=== PATIENT | female | born 1945 | race Caucasian/White ===

== ENCOUNTER → 2020-11-27 09:36 | Outpatient (CLI) | payer MEDICARE, OTHER, SELFPAY ==
[2020-11-27 10:20] LABS: COVID19 -Nasal RAPID Negative (Negative)
== END ==
PROVIDERS: Referring Provider Surgery; Visit Provider Surgery
DX: C34.11 Malignant neoplasm of upper lobe, right bronchus or lung (principal)
CPT/HCPCS: 87635; C9803

== ENCOUNTER → 2020-11-27 09:40 | Outpatient (CLI) | payer MEDICARE, OTHER, SELFPAY ==
--- NOTE | 2020-11-30 08:13 | PM.PFT.1 ---
Pulmonary Function Test Referral & Results Date Patient Seen: 11/27/20 Requesting provider: Richelle Umaña Results: The spirometry demonstrates an FVC of 2.61 L which is 94% of predicted. The FEV1 was measured at 2.12 L which is 102% of predicted. The FEV1/FVC ratio was 81 which is 108% of predicted. Lung volumes show an SVC of 2.74 L which is 101% of predicted. The diffusing capacity was measured at 20.58 which is 89% of predicted. The maximum voluntary ventilation was normal Interpretation: This study demonstrates normal spirometry and probably normal diffusing capacity.
== END ==
PROVIDERS: Referring Provider Surgery; Visit Provider Surgery
DX: C34.11 Malignant neoplasm of upper lobe, right bronchus or lung (principal); Z87.891 Personal history of nicotine dependence; Z20.822 Contact with and (suspected) exposure to COVID-19
CPT/HCPCS: 87635; 94010; 94726; 94729; C9803

== ENCOUNTER → 2020-12-11 15:14 | Outpatient (CLI) | payer MEDICARE, OTHER, SELFPAY ==
--- NOTE | 2020-12-11 | DI.MRI.S_ITS ---
PROCEDURE: MR HEAD/BRAIN WO/W CON INDICATIONS: malignant neoplasm of right upper lobe TECHNIQUE: Noncontrast axial T1 spin echo, axial T2 fast spin echo, sagittal and axial FLAIR, coronal T2 fast spin echo, axial gradient echo, axial diffusion and ADC through the brain. After the administration of contrast, axial and coronal 3D VIBE or T1 spin echo with fat saturation through the brain. COMPARISON: None. FINDINGS: Image quality: Excellent. CSF Spaces: Basal cisterns are patent. No extra-axial fluid collections. Ventricles are normal in size and shape. Brain: No midline shift. No intracranial bleeds or masses. There is mild, diffuse cerebral volume loss. There are minimal periventricular and subcortical white matter chronic microvascular ischemic changes. No abnormal intracranial enhancement. The brainstem appears normal. Diffusion-weighted images demonstrate no acute ischemic insults. No chronic ischemic insults. Normal intravascular flow voids are present. Dural sinuses demonstrate normal postcontrast enhancement. Skull and face: Calvarial marrow is normal in signal. Orbits appear normal. Sinuses: Sinuses and mastoids appear clear. IMPRESSION: 1. No evidence of metastatic disease. 2. No acute intracranial disease process. 3. No abnormal intracranial mass or suspicious postcontrast enhancement. 4. Mild, diffuse cerebral volume loss. 5. Minimal periventricular and subcortical white matter chronic microvascular ischemic changes. Dictated by: Alicia Hatfield MD, PhD on 12/11/2020 at 17:12 Approved by: Alicia Hatfield MD, PhD on 12/11/2020 at 17:16
== END ==
PROVIDERS: PCP Internal Medicine; Referring Provider Surgery; Visit Provider Surgery
DX: C34.11 Malignant neoplasm of upper lobe, right bronchus or lung (principal)
CPT/HCPCS: 70553

== ENCOUNTER → 2023-11-06 10:54 | Outpatient (CLI) | payer MEDICARE, OTHER, SELFPAY ==
--- NOTE | 2023-11-06 10:57 | DI.MRI.S_ITS ---
PROCEDURE: MR LUMBAR SPINE WO CON INDICATIONS: Spinal stenosis, lumbar region TECHNIQUE: Noncontrast sagittal T1 spin echo and T2 fast echo, sagittal STIR, and T2 fast spin echo through the lumbar spine. In cases with scoliosis, additional coronal T2 fast spin echo may be performed. COMPARISON: [facility] [place], CR, XR LUMBAR SPINE 2 OR 3 VIEWS, 10/27/2023, 13:22. FINDINGS: Image quality: Excellent. Alignment and Curvature: Mild levocurvature centered at L4-L5. Trace anterolisthesis of L4 on L5. Bone Marrow: Marrow is of normal overall signal. No acute vertebral body compression fractures. Spinal Cord: Conus medullaris terminates at the L2-L3 level. Visualized cord demonstrates normal signal and size. Paraspinous Soft Tissues: No paravertebral masses. T12-L1: Normal appearance. L1-L2: Mild facet hypertrophy. No canal stenosis or foraminal stenosis. L2-L3: Mild chronic disc height loss. Disc bulge facet hypertrophy. Borderline canal stenosis. No significant foraminal stenosis. L3-L4: Moderate to severe chronic disc height loss. Disc bulge. Epidural lipomatosis. Facet hypertrophy and ligament hypertrophy. Moderate canal stenosis, in part secondary to epidural lipomatosis. Moderate to severe right foraminal narrowing with a mild degree of right foraminal L3 nerve root impingement. Mild to moderate left foraminal narrowing. L4-L5: Trace anterolisthesis. Disc height loss. Disc bulge. Prominent facet and ligament hypertrophy. Moderate canal stenosis. L5-S1: Chronic disc height loss. Disc bulge. Facet and ligament hypertrophy. No canal stenosis. Mild bilateral foraminal stenosis. IMPRESSION: 1. Multilevel underlying facet arthropathy. 2. Epidural lipomatosis contributes to canal stenosis at L3-L4. 3. Canal stenosis is moderate at L3-L4 and L4-L5. 4. At L3-L4, there is moderate to severe right foraminal narrowing with a degree of right foraminal L3 nerve root impingement Dictated by: Reese Basurto M.D. on 11/06/2023 at 12:16 Approved by: Reese Basurto M.D. on 11/06/2023 at 12:40
== END ==
LOC: MRI 10:56
PROVIDERS: PCP Nurse Practitioner Family; Referring Provider Orthopaedic Surgery Orthopaedic Surgery of the Spine; Visit Provider Orthopaedic Surgery Orthopaedic Surgery of the Spine
DX: M48.062 Spinal stenosis, lumbar region with neurogenic claudication (principal); M47.816 Spondylosis without myelopathy or radiculopathy, lumbar region; M47.817 Spondylosis without myelopathy or radiculopathy, lumbosacral region
CPT/HCPCS: 72148

== ENCOUNTER → 2023-11-12 12:42 | Outpatient (CLI) | payer MEDICARE, OTHER, SELFPAY ==
--- NOTE | 2023-11-12 12:46 | EKG_ITS ---
[address] [address] Test Date: 2023-11-12 Pat Name: Gunjan Rocha Department: [facility] Room: Gender: Female Laundry Tech: MANNY : 1945 Requested By: Order Number: [id number] Reading MD: Ming Dahl Measurements Intervals [place] Rate: 81 P: 70 CT: 166 QRS: 71 QRSD: 82 T: 52 QT: 386 QTc: 448 Interpretive Statements Normal sinus rhythm Electronically Signed On 11-12-2023 15:13:48 PDT by Ming Dahl
[2023-11-12 13:02] LABS: Add Manual Diff / Slide Review NO; Basophils Absolute Auto 100 /uL (0-100); Basophils Percent Auto 1.4 % (0-2); Eosinophils Absolute Auto 400 /uL (0-450); Eosinophils Percent Auto 4.9 % (2-4); Hematocrit 43.1 % (36-46); Hemoglobin 14.9 g/dL (12.0-16.0); Lymphocytes Absolute Auto 3400 /uL (1100-4500); Mean Corpuscular HGB Conc 34.6 % (30-36); Mean Corpuscular Hemoglobin 31.2 PG (26-34); Mean Corpuscular Volume 90.3 fL (80-100); Monocytes Absolute Auto 400 /uL (0-900); Monocytes Percent Auto 5.1 % (3-14); Neutrophils Absolute Auto 3400 /uL (1500-7000); Neutrophils Percent Auto 44.6 % (50-75); Platelet Count 274 X10^3/uL (150-400); Red Blood Cell Count 4.77 X10^6/uL (4.0-5.2); Red Cell Distribution Width 13.9 % (11.6-14.8); White Blood Cell Count 7.7 X10^3/uL (4.5-11.0)
[2023-11-12 13:15] LABS: Hemoglobin A1C% w Est Avg Glu 6.1 % (4.0-6.0)
[2023-11-12 13:23] LABS: Blood Urea Nitrogen 11 mg/dL (7-17); Calcium 9.5 mg/dL (8.4-10.2); Carbon Dioxide 24 mmol/L (22-32); Chloride 100 mmol/L (98-107); Estimated Glomerular Filt Rate > 60 mL/min (>60); Glucose 140 mg/dL (80-110); HEMOLYSIS < 15 (0-50); Potassium 4.2 mmol/L (3.4-5.1); Sodium 132 mmol/L (137-145)
== END ==
PROVIDERS: PCP Nurse Practitioner Family; Referring Provider Orthopaedic Surgery Orthopaedic Surgery of the Spine; Visit Provider Orthopaedic Surgery Orthopaedic Surgery of the Spine
DX: Z01.818 Encounter for other preprocedural examination (principal); R73.9 Hyperglycemia, unspecified; Z01.812 Encounter for preprocedural laboratory examination
CPT/HCPCS: 36415; 80048; 83036; 85025; 93005

== ENCOUNTER → 2023-11-27 11:38 | Outpatient (CLI) | payer MEDICARE, OTHER, SELFPAY ==
--- NOTE | 2023-11-27 | DI.CT.S_ITS ---
PROCEDURE: CT LUMBAR SPINE WO CON INDICATIONS: Spinal stenosis, lumbar region TECHNIQUE: Noncontrast 0.8 mm thick sections acquired from the T12 level to the sacrum. Sagittal and coronal reformats were constructed. For radiation dose reduction, the following was used: automated exposure control. COMPARISON: [facility], MR, MR LUMBAR SPINE WO CON, 11/06/2023, 11:31. [facility] [place], CR, XR LUMBAR SPINE 2 OR 3 VIEWS, 10/27/2023, 13:22. FINDINGS: Image quality: Excellent. Bones: No acute vertebral body compression fractures. No suspicious lytic or blastic bony lesions. S-shaped scoliotic curvature is seen. Minimal retrolisthesis can be seen at the L2-L3 level. Mild grade 1 anterolisthesis is seen at the L4-L5 level. No associated pars defects are seen. T12-L1: Normal. L1-L2: Normal. L2-L3: [id number] loss of disc height is seen. Moderate generalized disc bulge is seen. There is a superimposed central disc protrusion. Mild facet joint hypertrophy is seen. Mild bilateral neural foraminal narrowing is seen. No central canal narrowing is seen. L3-L4: Moderate loss of disc height is seen. Endplate irregularity and sclerosis can be seen. Vacuum disc phenomenon is seen at this level. Moderate generalized disc bulge is seen. There is at least moderate right-sided and moderate left-sided facet hypertrophy. There is at least moderate bilateral neural foraminal narrowing seen. Moderate central canal narrowing is seen. L4-L5: [id number]-icvgubor loss of disc height is seen. Moderate generalized disc bulge is seen. There is at least moderate facet hypertrophy seen, right worse than left. Moderate to severe bilateral neural foraminal narrowing can be seen. Moderate central canal narrowing is seen. L5-S1: At least moderate loss of disc height is seen. Vacuum disc phenomenon is seen at this level. Endplate irregularity and sclerosis can be seen. Mild generalized disc bulge is seen. Mild bilateral neural foraminal narrowing is seen. Mild central canal narrowing is seen. Soft tissues: No retroperitoneal masses or hematomas. Visualized aorta is normal in caliber. Atherosclerotic calcification is noted. IMPRESSION: Multiple levels of significant lower lumbar spine degenerative change can be seen. Dictated by: Manohar Hanley M.D. on 11/27/2023 at 14:51 Approved by: Manohar Hanley M.D. on 11/27/2023 at 14:56
== END ==
PROVIDERS: PCP Nurse Practitioner Family; Referring Provider Orthopaedic Surgery Orthopaedic Surgery of the Spine; Visit Provider Orthopaedic Surgery Orthopaedic Surgery of the Spine
DX: M47.816 Spondylosis without myelopathy or radiculopathy, lumbar region (principal); M48.061 Spinal stenosis, lumbar region without neurogenic claudication
CPT/HCPCS: 72131

== ENCOUNTER 2023-12-16 06:01 | Inpatient (IN) | payer MEDICARE, OTHER, SELFPAY ==
[2023-12-10 09:38] VITALS: BMI 28.8
[2023-12-16] VITALS (22 sets, daily range): BP systolic 129–176; BP diastolic 60–100; PULSE 80–114; RESP 8–20; TEMP 36.4–36.8; O2SAT 97–108; BMI 28.8; BMI 29.2
--- NOTE | 2023-12-16 | DI.RAD.S_ITS ---
PROCEDURE: XR LUMBAR SPINE 2-3V INDICATIONS: L4-5 L5-S1 TLIF TECHNIQUE: 3 intraoperative fluoroscopic views of the lumbar spine were acquired. COMPARISON: None. FINDINGS: Intraoperative fluoroscopic images shows posterior fusion of L4 through S1 vertebral bodies with intervertebral spacer and posterior surgical hardware placement. IMPRESSION: Fluoro guidance was provided intraoperatively for L4-5 and L5-S1 TLIF. Dictated by: Joey Rodriguez M.D. on 12/16/2023 at 15:45 Approved by: Joey Rodriguez M.D. on 12/16/2023 at 15:46
[2023-12-16] MEDS: ACETAMINOPHEN 325 MG TABLET 975 MG PO (07:03)
[2023-12-16] MEDS: LACTATED RINGERS 1,000 ML 42 ML IV ×2 (07:05→10:29)
--- NOTE | 2023-12-16 07:32 | PM.PREOP ---
Pre-operative Note Interval Note History & Physical reviewed/Exam performed by Physician: Yes Changes to H&P: No
[2023-12-16] MEDS: CEFAZOLIN 2 GM/100 ML PREMIX 100 ML IV ×2 (07:50→15:27)
--- NOTE | 2023-12-16 07:57 | SUR.OPER ---
Prone on spine table, head in foam head support, padded chest and pelvic supports, gel pad at knees, lower legs supported by pillows; nipples, genitalia and toes free of pressure, arms secured on foam padded arm boards at <90 degrees abduction. Tape over blanket at thigh secured to table.
[2023-12-16] MEDS: BUPIVACAINE 0.25% (PF) 60 ML, EPINEPHrine 0.15 MG INJ (08:10)
[2023-12-16] MEDS: BUPIVACAINE LIPOSOME 266 MG/20 ML VIAL INJ (11:16)
--- NOTE | 2023-12-16 11:20 | P.OP_ITS ---
Operative Date/Time/Diagnoses Date of procedure: 12/16/23 Time of procedure: 07:41 Pre-op diagnosis: 1. L4-5, L5-S1 spondylolisthesis 2. L4-5, L5-S1 foramen stenosis with radiculopathy Post-op diagnosis: same Procedure & Clinicians Procedure: 1. L4-5, L5-S1 Postero-lateral and posterior interbody fusion 2. L4-5, L5-S1 interbody cage placement. 3. L4-5, L5-S1 decompressive laminectomy with bilateral facetecomies 4. L4-5, L5-S1 Posterior segmental instrumentation 5. Franklin of bone marrow from iliac crest 6. Utilization of microsurgical technique and operating microscope 7. Utilization of robotic assisted navigation Same procedure as scheduled: Yes Indications: Patient has been having chronic back pain and worsening lumbar radiculopathy. Patient was found to have L4-5 L5-S1 spondylolisthesis with foraminal stenosis correlating with patient's symptoms. Patient failed multiple conservative management with worsening pain weakness and numbness in her lower extremity. Patient has been having difficulty performing activity of daily living. After discussing risks benefits of treatment options, patient elected proceed with surgery. Surgeon: Yared Agosto It Corporate Recruiter: Sherin Garza Click Yes if Unassisted: No Anesthesia Type: General Operative Notes Closure Type: primary Specimen(s): none sent Prosthetic devices, grafts, tissues, transplants, or devices: Globus CREO MIS screws, Rise cages Applied: catheter Estimated Blood Loss (mL): 100 Blood products transfused: none Procedure in detail: Patient was seen in the preoperative area. Risks and benefits of the surgery was discussed with the patient. Informed consent was obtained from the patient and placed in the chart. Surgical site was marked. Patient was taken to the operative room. General anesthesia was administered. Prophylactic antibiotic was given to the patient less than 30 min before the incision was made. Patient was placed into a prone position on the Pk table. Patient's back was then prepped and draped in the sterile fashion. Time-out was performed at this time. After patient was prepped and draped, patient's PSIS was palpated and marked bilaterally. Small 1 cm incision was made over the PSIS for placement of the reference probes. Two trocar was placed into the PSIS 1 on each side. The reference probe was attached to the trocar of the reference apparatus. At this time the C-arm imaging was used to confirm AP and lateral of L4-L5, L5- S1 vertebrae and merged the C-arm imaging using the SwipeClock robotic navigation system with the CT of the lumbar spine. When the lateral prone extra was taken at L4-5 L5-S1 level, there is increased spondylolisthesis at both L4-5 L5-S1 level indicating dynamic instability. After successful merging was completed and confirmed, skin marker was used to marylou out the skin incision using the SwipeClock robotic arm. Bilateral incision was made at this time. Pre templated trajectory was used and guided using the SwipeClock robotic navigation system for bilateral L4, L5, S1 pedicle screw placement. This was done by using the robotic arm to guide the high-speed bur to make a cortical entry point. Next a drill was placed also using the robotic arm and guided using the navigation system drilling partially through bilateral L4, L5 and S1 pedicles. Next L4, L5, S1 pedicle screws it was pre templated and measured was placed onto the power construction driver and inserted into the pedicles bilaterally. After all 6 screws were placed C-arm imaging was taken of both AP and lateral to confirm the placement. Excellent placement of the screws were confirmed and a matched precisely with the pre planned screw placement using the navigation system. MARs retractor was inserted using [employer] guidence. Globus MARS retractors was placed inside the incision and docked onto the L4 and L5 lamina. Using microsurgical technique and operating microscope, a L4, L5 laminectomy and L4-5, L5-S1 facetectomy was performed using a Kerrison rongeur. The laminectomy and facetectomy was performed in order to decompress patient's cauda equina as well as the nerve roots exiting at the L4-5, L5-S1 level. Patient was found have severe lateral recess and neural foramen stenosis which was fully decompressed after the laminectomy facetectomy. More than 75% of the facets were removed during the process of decompression rendering L4-5, L5-S1 level grossly unstable and required a fusion procedure at the same time. The disc space at L4-5, L5-S1 was identified, and a total diskectomy was performed at L4-5, L5-S1 level. The endplates were decorticated using a rasp and shaver. The total diskectomy and decortication was performed at L4-5, L5-S1 level in order to to accomplish a L4- 5, L5-S1 fusion. The local bone from the laminectomy and facetectomy was saved for local bone grafting. After the total diskectomy and decortication was completed, Viacel bone graft material was combined with local bone that was harvested earlier. At this time, a separate skin is incision was made over the iliac crest. A Jamshidi needle was inserted into the iliac crest through a separate skin incision. 5 cc of bone marrow aspiration was obtained through the separate skin incision using a Jamshidi needle from the iliac crest. The bone marrow aspiration was combined with local bone and the Viacel bone grafting material. The bone grafting material was placed into the L4-5, L5-S1 interbody space along with a expandable cage. The cage was expanded to its maximum height using the torque limiting screwdriver. The disc preparation as well as the cage insertion were also performed under navigation guidance. After the cage was placed, AP and lateral C-arm imaging was taken to confirm placement of the cage and excellent position was confirmed. Globus MARS retractor was inserted and docked onto the L4-5, L5-S1 posterolateral gutter on the right side. Using the power drill, posterior- lateral decortication was performed at L4-5, L5-S1 level until bleeding cortical bone was identified. The remaining bone grafting material was placed into the L4-5, L5-S1 posterior lateral gutter he order to accomplish posterolateral fusion at the L4-5, L5-S1 level. At this time the tulips were attached to the L4, L5, S1 pedicle screw shanks. After measuring the length of the rods, they were inserted into the tulips of the pedicle screws and locked in place using locking caps and torque limiting screwdriver bilaterally. Total 6 caps and 2 titanium rods was used in order to complete the posterior instrumentation construct. After all the hardware was placed, and confirmed with AP and lateral C-arm imaging, the wound was then irrigated with sterile normal saline and packed with Ray-Duke gauze for 3 min to accomplish hemostasis. After the gauze was removed the deep fascia was closed with #1 Vicryl suture. The subcutaneous layer was closed with 2-0 Vicryl. The skin was closed with skin margarita. Patient tolerated the procedure well. There were no complications. Neuro monitoring system was used to monitor patient's neurologic status throughout entire procedure. There was no disturbance of the neural monitoring signals throughout the case. The Operation could not have been safely performed without compromising the technical result or length of the procedure, without the assistance of a skilled surgical coordinator. The surgical coordinator was medically necessary for proper positioning, retraction and manipulation of instruments, proper exposure, surgical preparation, and manipulation of tissue.
[2023-12-16] MEDS: ONDANSETRON 4 MG/2 ML INJ IV (11:46)
[2023-12-16] MEDS: fentaNYL 100 MCG/2 ML INJ IV ×4 (11:46→12:13)
[2023-12-16] MEDS: HYDROMORPHONE 1 MG INJ IV ×4 (11:50→12:25)
[2023-12-16] MEDS: hydrOXYzine 50 MG/ML INJ 25 MG IM (11:52)
[2023-12-16] MEDS: OXYCODONE IR 5 MG TABLET PO (12:04)
[2023-12-16] MEDS: ACETAMINOPHEN 325 MG TABLET 650 MG PO (14:20)
[2023-12-16] MEDS: OXYCODONE IR 10 MG TABLET PO ×4 (14:20→23:11)
[2023-12-16] MEDS: HYDROMORPHONE 0.5 MG INJ IV (14:20)
[2023-12-16] MEDS: LACTATED RINGERS 1,000 ML 125 ML IV ×2 (14:21→23:05)
[2023-12-16] MEDS: LOSARTAN 50 MG TABLET PO (15:26)
--- NOTE | 2023-12-16 16:02 | PT-IP ANOTE ---
Pt requests to be seen tomorrow, she is not ready to get out of bed yet due to pain.
[2023-12-16] MEDS: allopurinoL 100 MG TABLET 200 MG PO (17:18)
--- NOTE | 2023-12-16 18:14 | PC.NURSE ---
Day shift: Notified JUAQUIN Martínez of patient's high BP, despite addressing pain with both IV and oral pain medications. Patient stated she can't remember if she took her BP medication yesterday. JUAQUIN Martínez ok'ed giving patient's losartan more than 1 hour early. Will continue to monitor.
[2023-12-16 20:05] LABS: Alanine Aminotransferase 67 IU/L (<35); Albumin 3.9 g/dL (3.5-5.0); Albumin Globulin Ratio 1.4 (1.0-2.8); Alkaline Phosphatase 100 U/L (38-126); Aspartate Aminotransferase 56 IU/L (14-36); Bilirubin Total 0.7 mg/dL (0.2-1.3); Bilirubin Unconjugated 0.2 mg/dL (0.0-1.1); Globulin 2.8 g/dL (1.7-4.1); HEMOLYSIS < 15 (0-50); Total Protein 6.7 g/dL (6.3-8.2)
[2023-12-16] MEDS: DOCUSATE 100 MG CAPSULE PO (20:28)
[2023-12-16] MEDS: SENNOSIDES 8.6 MG TABLET 17.2 MG PO (20:29)
[2023-12-17] VITALS: BP 128/56; PULSE 109; RESP 18; TEMP 36.6; O2SAT 95
[2023-12-17] MEDS: CEFAZOLIN 2 GM/100 ML PREMIX 100 ML IV (00:28)
[2023-12-17] MEDS: OXYCODONE IR 10 MG TABLET PO ×6 (02:14→20:57)
[2023-12-17 05:23] LABS: Hematocrit 37.5 % (36-46)
[2023-12-17] MEDS: PANTOPRAZOLE DR 20 MG TABLET PO (05:39)
--- NOTE | 2023-12-17 07:46 | P.PN_ITS ---
Subjective Subjective Interval history: Gunjan is a pleasant 78-year-old female who is POD#1 s/p L4-5, L5-S1 TLIF by Dr. Agosto. This morning she c/o poor pain control, had a very difficult time sleeping last night. Her pain has been controlled w/ 10mg Oxycodone Q4 and some IV Dilaudid yesterday. L>R low back pain, no shooting pain. Lives at home w/ who is willing and able to aid in her post-op care, has 2 steps at home. Has walker and cane at home for post-op use. Urinating well w/o issue, Plunkett has been removed. Has worked w/ PT and was able to walk w/ the assistance of the walker. Denies fever, chills, chest pain, SOB, nausea, vomiting. Exam Vital Signs (past 8 hours): - 12/17/23 00:00 Temperature 97.9 F Pulse Rate 109 H Respiratory Rate 18 Blood Pressure 128/56 L Pulse Oximetry 95 Oxygen Delivery Method Nasal Cannula Oxygen Flow Rate 0 Narrative Exam Narrative: Patient lying comfortably in bed during our interview today. No acute distress. AOx3. 5/5 strength with DF, PF, EHL right. 4/5 strength w/ DF, PF, on the left. 5/5 left EHL. Gross sensation intact throughout bilateral lower extremities. Calves soft and non-tender bilaterally. SCDs are on and functioning. Brisk capillary refill, pulses intact. Post-surgical dressing dressing clean, dry and intact over the lumbar spine. Objective Labs 12/17/23 04:37 Labs: Laboratory Results - last 24 hr 12/16/23 12/17/23 19:45 04:37 Hgb 13.0 Hct 37.5 Total Bilirubin 0.7 Conjugated Bilirubin 0.0 Unconjugated Bilirubin 0.2 AST 56 H ALT 67 H Alkaline Phosphatase 100 Total Protein 6.7 Albumin 3.9 Globulin 2.8 Albumin/Globulin Ratio 1.4 [facility] Medical History (Updated 12/10/23 @ 10:20 by Alison Grimm RN) History of COVID-19 (~11/2022) BCC (basal cell carcinoma) Cervical cancer Pre-diabetes Fatty liver HLD (hyperlipidemia) Lung cancer (2020) GERD (gastroesophageal reflux disease) Gout HTN (hypertension) Arthritis COPD (chronic obstructive pulmonary disease) Surgical History (Updated 12/10/23 @ 10:14 by Alison Grimm RN) History of bunionectomy of right great toe Hx of partial nephrectomy (~1969) History of lobectomy of lung (2020) History of hysterectomy Hx of appendectomy Hx of tonsillectomy Social History household members: spouse Smoking Status: Former smoker alcohol intake: current Assessment & Plan Post-op Postoperative Procedures: Procedures Operation Date: 12/16/23 07:45 Actual Procedure Side Surgeon p L4-5, L5-S1 TLIF with posterior instrumentation-Robot Yared Agosto MD Postoperative plan narrative: 1) Plan to discharge to home either today or tomorrow pending patients progress w/ PT and pain control. 2) Continue multimodal pain management. 3) Mechanical DVT prophylaxis. 4) Continue to work w/ PT here in the hospital to aid in patients mobilization. Maintain BLT restrictions. 5) Keep dressing intact, clean, dry until 2 week postop appointment. No soaking the incision site in pools or tubs. No topical ointments or creams to the incision site. 6) Follow up at [facility] in 2 weeks for a postop appointment, staple removal and wound check. All patient's questions were answered, she demonstrates understanding and is in agreement with the plan. Call our office if any questions or concerns arise. Quality VTE Deep Vein Thrombosis/Pulmonary Embolism Present on Admission: No
[2023-12-17 08:00] VITALS: BP 144/67; PULSE 88; RESP 16; TEMP 36.9; O2SAT 97
[2023-12-17] MEDS: DOCUSATE 100 MG CAPSULE PO ×2 (08:50→20:57)
[2023-12-17] MEDS: ACETAMINOPHEN 325 MG TABLET 650 MG PO ×2 (08:50→16:14)
[2023-12-17] MEDS: SODIUM CHLORIDE 0.9% FLUSH 10 ML IV ×2 (08:51→20:58)
--- NOTE | 2023-12-17 10:36 | OT.IP.EVAL ---
Current Diagnoses Spondylolisthesis, lumbar region (12/16/23) Spinal stenosis, lumbar region without neurogenic claudication (12/16/23) Surgery Performed Operation Date: 12/16/23 07:45 Actual Procedures p L4-5, L5-S1 TLIF with posterior instrumentation-Robot - Yared Agosto MD Past Medical History (Last Updated 12/10/23 @ 10:20 by Alison Grimm, RN) Arthritis BCC (basal cell carcinoma) Cervical cancer COPD (chronic obstructive pulmonary disease) Fatty liver GERD (gastroesophageal reflux disease) Gout History of COVID-19 (~11/2022) HLD (hyperlipidemia) HTN (hypertension) Lung cancer (2020) Pre-diabetes Surgical History (Last Updated 12/10/23 @ 10:14 by Alison Grimm, RN) History of bunionectomy of right great toe History of hysterectomy History of lobectomy of lung (2020) Hx of appendectomy Hx of partial nephrectomy (~1969) Hx of tonsillectomy Occupational Therapy Inpatient Evaluation/Re-Eval M1 PT/OT-IP Prior Functional Status Start: 12/17/23 07:50 Freq: NEEDED Status: Active Protocol: Document 12/17/23 10:00 MB (Rec: 12/17/23 10:49 MB [id number]) Medical Review Prior Functional Status Medical History Reviewed Yes Diet/Fluid Consistency Regular Communication WNLs Mobility and Gait I with cane Activities of Daily Living and IADL's Mod I with ADLs Social History Household Members spouse Living Arrangements House Number of Floors (Floors) One Floor Number of Stairs To Enter/Railing? Threshold to enter Home Environment High Toilet,Tub/Shower Home Equipment Front Wheel Walker,Straight Cane,Hand Held Shower,Grab Bars In Shower Employment Status Retired M1 PT/OT-IP Prior Functional Status Start: 12/17/23 10:34 Freq: NEEDED Status: Active Protocol: Document 12/17/23 10:35 [facility] (Rec: 12/17/23 10:54 [facility] [id number]) Medical Review Prior Functional Status Communication Independent Mobility and Gait Pt use of SPC outdoors and furniture cruises inside. Activities of Daily Living and IADL's Pt able to do ADL and IADL needs with increased time and pain. Social History Household Members spouse Living Arrangements House Home Environment Tub/Shower Home Equipment Front Wheel Walker,Straight Cane,Shower Seat without Backrest,Hand Held Shower, Export Documents Clerk,Sock Aid,Grab Bars In Shower M2 OT-IP Current Condition Start: 12/17/23 10:34 Freq: Status: Active Protocol: Document 12/17/23 10:35 [facility] (Rec: 12/17/23 10:54 [facility] [id number]) Occupational Therapy Current Condition Current Condition Evaluation Date 12/17/23 Treatment Diagnosis S/P L4-5, L5-S1 TLIF Diagnosis Onset Date 12/16/23 Post Operative Precautions Lumbar Precautions Log Roll,No Twisting,Limit Bending,Lifting Restriction of 10 lbs,Gait Belt above Incisional Area M3 OT- IP Subjective and Pain Start: 12/17/23 10:34 Freq: Status: Active Protocol: Document 12/17/23 10:35 [facility] (Rec: 12/17/23 10:54 [facility] [id number]) OT- Subjective Occupational Therapy Visit Type Type Initial Evaluation Visit Start Time 09:40 Visit Stop Time 10:36 Occupational Therapy Visit Comments Patient Comments Pt agreed to get up and her in the room. Patient/Caregiver Goals To go home. OT Pain Assessment Pain When Pain Assessed At Rest Pain Present Pain Present Pain Reported Location Lower Back Intensity 7 Scale Used Numeric (0 - 10) M4 OT- IP ADL's Start: 12/17/23 10:34 Freq: Status: Active Protocol: Document 12/17/23 10:35 [facility] (Rec: 12/17/23 10:54 [facility] [id number]) OT [id number] General Evaluation Self-Feeding Ability Independent OT ADL-Grooming General Evaluation Grooming Ability Standby Assistance Areas Needing Assistance Retrieving/Set-up of Grooming Items Comments OT Grooming Comments Set-up assist and able to do while the FWW in front of her. OT ADL-Oral Care General Eval Oral Care Ability Independent Comments Oral Care Comments Able to do while standing with FWW. OT ADL-Dressing General Eval Lower Body Dressing Ability Maximum Assistance Areas Needing Assistance Socks Comments OT Dressing Comments Pt uses slip on shoes at home, assisted pt with her socks. OT ADL-Toileting General Evaluation Toileting Ability Total Assistance Areas Needing Assistance Empty Catheter or Colostomy Comments OT Toileting Comments Plunkett in place. Able to practice if pt able to reach back appropriately to be able to wipe and best to have assist or get a toilet paper aid or bidet. Pt agreed to get pads/pull ups so not having to hurry to the bathroom at night. BSC also maybe beneficial for pt to have. OT ADL-Bathing Comments OT Bathing Comments Spoke of dressing care while showering. M5 OT- IP IADL's Start: 12/17/23 10:34 Freq: Status: Active Protocol: Document 12/17/23 10:35 [facility] (Rec: 12/17/23 10:54 [facility] [id number]) OT-Instrumental Activities of Daily Living Deficits IADL Deficits Identified Deficits Home Safety Awareness Awareness of Need for Assistance at Home Good Awareness Ability to Problem Solve Emergency Able to Problem Solve Situations Home Safety Comments Pt's able to assist pt at home. Medication Management Medication Management No Deficits Identified Money Management Money Management Caregiver Provides Assistance Meal Preparation Meal Preparation Caregiver Provides Assist Software Quality Assurance Specialist Software Quality Assurance Specialist Caregiver Provides Assist M6 OT- IP Functional Cognition Start: 12/17/23 10:34 Freq: Status: Active Protocol: Document 12/17/23 10:35 [facility] (Rec: 12/17/23 10:54 [facility] [id number]) Cognitive Factors Limiting Selfcare Function Cognitive Ability Level of Alertness Alert Patient Orientation Name,Age,Birthday,Month,Date, Year,Day of Week,Place, Situation Attention Span Ability Capable of Focused Attention, Capable of Sustained Attention Ability to Follow Commands Able to Follow One Step Commands Cognitive Comments Cognitive Assessment Comments Pt able to follow her precautions for ADL and mobility needs and mainly just needing cues to push up from the bed prior to standing to the FWW versus push up on the FWW. OT- Vision and Hearing OT- Hearing Assessment OT- Hearing Assessment WFL OT- Vision Assessment Visual Acuity Glasses All The Time Visual Attentiveness WFL Occular Pursuits WFL M7 OT- IP Mobility and Balance Start: 12/17/23 10:34 Freq: Status: Active Protocol: Document 12/17/23 10:35 [facility] (Rec: 12/17/23 10:54 [facility] [id number]) OT- Bed Mobility Assessment Supine to Sit Supine to Sit Assist Contact Guard Assistance OT-Transfer Assessment Sit to and From Stand Sit to and from Stand Contact Guard Assistance Transfers Transfer Ability Contact Guard Assistance Technique Transfer Destination Bed,Chair Transfer Technique Stand Step Pivot Devices Transfer Assistive Devices Gait Belt,Front Wheeled Walker Comments Mobility Comments CGA for bed mobility and to come to stand and with the FWW in the room. Pt's able to assist pt with the FWW safely. OT- Balance Assessment Sitting Balance and Reactions Static Sitting Balance Ability Normal Dynamic Sitting Balance Ability Good Standing Balance and Reactions Static Standing Balance Ability Good Dynamic Standing Balance Ability Fair M9 OT- IP Assessment and Plan Start: 12/17/23 10:34 Freq: Status: Active Protocol: Document 12/17/23 10:35 [facility] (Rec: 12/17/23 10:54 [facility] [id number]) OT Summary Assessment and Plan Potential Rehabilitation Potential Good Analytic Complexity at Evaluation Moderate Summary OT Impairments Pain,Balance,Functional Mobility,Dressing,Toileting, Bathing,Toilet Transfers, Shower Transfers Progress Towards Goals Progressing Toward Goals Assessment Summary Pt low complexity and main barriers are pain, just needing minimal assist for mobility needs at this time and pt's able to demonstrate good safety. Pt will benefit from getting a toilet paper aid and possibly a BSC. Pt to go home with 24/ assist and benefit from outpt PT when cleared by surgeon. Goals Dressing Goal Independent,Export Documents Clerk,Sock Aid Toileting Goal Independent,Toilet Paper Aid Bathing Goal Minimal Assistance Toilet Transfer Goal Independent Shower Transfer Goal Standby Assistance Days to Meet Goals 2 Frequency of Treatment Other frequency 5x/week Treatment Plan OT Treatment Plan ADL Training,Functional Mobility,Patient/Family Education,Discharge Planning Discharge Recommendations OT Discharge Recommendations Home with Assistance Home Equipment Needs Toilet Paper aid Transportation Needs at Discharge Private Vehicle
--- NOTE | 2023-12-17 10:50 | PT.IIE ---
Current Diagnoses Spondylolisthesis, lumbar region (12/16/23) Spinal stenosis, lumbar region without neurogenic claudication (12/16/23) Surgery Performed Operation Date: 12/16/23 07:45 Actual Procedures p L4-5, L5-S1 TLIF with posterior instrumentation-Robot - Yared Agosto MD Surgical History (Last Updated 12/10/23 @ 10:14 by Alison Grimm, RN) History of bunionectomy of right great toe History of hysterectomy History of lobectomy of lung (2020) Hx of appendectomy Hx of partial nephrectomy (~1969) Hx of tonsillectomy Medical History (Last Updated 12/10/23 @ 10:20 by Alison Grimm, RN) Arthritis BCC (basal cell carcinoma) Cervical cancer COPD (chronic obstructive pulmonary disease) Fatty liver GERD (gastroesophageal reflux disease) Gout History of COVID-19 (~11/2022) HLD (hyperlipidemia) HTN (hypertension) Lung cancer (2020) Pre-diabetes Physical Therapy Inpatient Evaluation/Re-Eval M1 PT/OT-IP Prior Functional Status Start: 12/17/23 07:50 Freq: NEEDED Status: Active Protocol: Document 12/17/23 10:00 MB (Rec: 12/17/23 10:49 MB [id number]) Medical Review Prior Functional Status Medical History Reviewed Yes Diet/Fluid Consistency Regular Communication WNLs Mobility and Gait I with cane Activities of Daily Living and IADL's Mod I with ADLs Social History Household Members spouse Living Arrangements House Number of Floors (Floors) One Floor Number of Stairs To Enter/Railing? Threshold to enter Home Environment High Toilet,Tub/Shower Home Equipment Front Wheel Walker,Straight Cane,Hand Held Shower,Grab Bars In Shower Employment Status Retired M2 PT-IP Current Condition Start: 12/17/23 07:50 Freq: NEEDED Status: Active Protocol: Document 12/17/23 10:00 MB (Rec: 12/17/23 10:49 MB [id number]) Physical Therapy Current Condition Current Condition Evaluation Date 12/17/23 Treatment Diagnosis Lumbar fusion M3 PT-IP Subjective Start: 12/17/23 07:50 Freq: NEEDED Status: Active Protocol: Document 12/17/23 10:00 MB (Rec: 12/17/23 10:49 MB [id number]) Subjective Physical Therapy Visit Type Type Initial Evaluation Visit Start Time 10:00 Visit Stop Time 10:20 Number of CERTIFIED NOVELL ADMINISTRATOR Visits 0 Physical Therapy Visit Comments Patient Comments Pt reports pain with mobility. Therapy Pain Assessment Pain When Pain Assessed During Mobility Pain Present Pain Present Pain Reported Location Lower Back Intensity 7 Scale Used Numeric (0 - 10) M4 PT-IP Mobility and Gait Start: 12/17/23 07:50 Freq: NEEDED Status: Active Protocol: Document 12/17/23 10:00 MB (Rec: 12/17/23 10:49 MB [id number]) PT-Bed Mobility Assessment Rolling Type of Rolling Log Rolling,Roll to Right Level of Assist Standby Assistance,1 Person Assistance Supine to Sit Supine to Sit Standby Assistance,1 Person Assistance,Bedrails Scooting Scooting to Edge of Bed Standby Assistance PT-Transfer Assessment Sit to and From Stand Sit to and from Stand Contact Guard Assistance,1 Person Assistance,Use of Upper Extremities Equipment Transfer Assistive Device Gait Belt,Front Wheeled Walker Orthotic/Prosthetic Devices or Brace: No Transfers Transfer Destination Chair Transfer Technique Ambulation Transfer Ability Level of Assist Contact Guard Assistance Comments Mobility Comments Pt uses bed rail to her right briefly for bed mobility. Increased time and effort for bed mobility, pain, but moves well. BP does not drop with mobility. Gait Assessment Gait Gait Assistance Required: Contact Guard Assist Distance (Feet) 30 Able to Maintain Weight Bearing Status Yes During Gait Assistive Devices Assistive Device Gait Belt,Front Wheeled Walker Orthotic/Prosthetic Devices or Brace: No Gait Deviations General Gait Pattern Antalgic,Decreased Stride Length,Decreased Feet Clearance,Wide Based Gait Factors Limiting Gait Function Factors Limiting Gait Function Decreased Activity Tolerance, Pain,Poor Balance,Poor Safety Awareness Comments Gait Comments Slow gait, stops at doorway and therapists adjust her RW, pt reports light-headedness and BP does not drop PT-Balance Assessment Sitting Balance and Reactions Static Sitting Balance Ability Good Dynamic Sitting Balance Ability Good Standing Balance and Reactions Static Standing Balance Ability Good Dynamic Standing Balance Ability Good Device Used RW M5 PT-IP Objective Assessments Start: 12/17/23 07:50 Freq: NEEDED Status: Active Protocol: Document 12/17/23 10:00 MB (Rec: 12/17/23 10:49 MB [id number]) Orientation Orientation/Cognition Level of Alertness Alert Orientation Name,Age,Birthday,Month,Date, Year,Day of Week,Place, Situation Language Function Ability No Deficits Noted Safety Awareness Decreased Safety Awareness Memory Description No Deficits Noted Gross Range of Motion Upper Extremity ROM Impairments Defer to OT Lower Extremity ROM Assessment Within Functional Limits Strength Lower Extremity Strength Assessment Within Functional Limits Muscle Tone Muscle Tone WNL Yes M6 PT-IP Treatment Start: 12/17/23 07:50 Freq: NEEDED Status: Active Protocol: Document 12/17/23 10:00 MB (Rec: 12/17/23 10:49 MB [id number]) Physical Therapy Treatment Exercises Exercises Ankle Pumps Education Education Provided Precautions,Post-Op Packet, Safety M7 PT-IP Assessment and Plan Start: 12/17/23 07:50 Freq: NEEDED Status: Active Protocol: Document 12/17/23 10:00 MB (Rec: 12/17/23 10:49 MB [id number]) PT Summary Assessment and Plan Potential Rehabilitation Potential Good Status of Condition at Evaluation Evolving Summary Impairments Pain,Balance,Bed Mobility, Transfers,Gait,Activity Tolerance Progress Towards Goals Progressing Toward Goals Assessment Summary Pt is s/p lumbar fusion and her BP is stable with mobility today. She moves slowly and has increased back pain with mobility. She requires SBA for bed mobility and CGA for gait with RW. She is light-headed with gait and reminders to slow breathing and breathe through nose. Recommend up with nsg. Pt has no steps to enter home and will have to assist with mobility at d/c. Goals Bed Mobility Goal Independent Transfer Goal Independent,Front Wheeled Walker Gait Goal Independent,Front Wheel Walker Gait Distance 100 Days to Meet Goals 3 Frequency of Treatment Frequency Of Treatment Twice a Day Treatment Plan Physical Therapy Treatment Plan Bed Mobility Training,Transfer Training,Gait Training, Therapeutic Exercise,Balance Retraining,Post Op Education, Discharge Planning,Hot or Cold Pack,Neuromuscular Re-ed, Coordination Retraining,Manual Therapy Precautions Lumbar Precautions Log Roll,No Twisting,Limit Bending,Lifting Restriction of 10 lbs,Gait Belt above Incisional Area Weight Bearing Status Weight Bearing Status Weight Bear as Tolerated Recommendations To Nursing Amount of Assist Needed 1 Person Assist Discharge Recommendations PT Discharge Recommendations Home with Assistance, Outpatient PT Transportation Needs at Discharge Private Vehicle
--- NOTE | 2023-12-17 13:35 | CM.DANOTE ---
Initial DCP Assessment Note Pt is a 78 yo female, resident of [place], now POD#1 from TLIF PCP: Millicent Stafford Payer: [facility] [employer] [employer] [facility] [employer] [facility] Reviewed chart, pt discussed in multidisciplinary rounds this morning. Met w/patient and her spouse as OT was finishing her eval. Therapies recommending home w/family to assist and patient has planned for this. Patient struggling with pain management and would like to stay this evening to get on a manageable pain scale before return home. No barriers identified at this time to patient's safe discharge home w/family to assist; close outpatient f/u recommended. CM team will plan to follow clinical course closely in case any DC needs or concerns arise. VIOLET Hogan Discharge Planning/Care Management CM Discharge Assessment Start: 12/17/23 13:33 Freq: Status: Active Protocol: Document 12/17/23 13:33 ASHLEE (Rec: 12/17/23 13:34 ASH[facility]E [id number]) Discharge Planning Assessment Assigned Bias Machine Operator Helper VIOLET Weiss DPOA/Assigned Designee Name Aravind Rocha, spouse Contact Information [phone] Advance Directives? No History Provided By Patient,Significant Other, Medical Record Prior Living Arrangements House Household Members spouse Type of transporation used prior to Drives own vehicle admit Independent with ADL's Yes Is patient alert and oriented? Yes Barriers to Discharge No Discharge Plan Home Transportation Arrangement Family Referrals Initiated None needed
--- NOTE | 2023-12-17 15:22 | PT.IPTN ---
Current Diagnoses Spondylolisthesis, lumbar region (12/16/23) Spinal stenosis, lumbar region without neurogenic claudication (12/16/23) Surgery Performed Operation Date: 12/16/23 07:45 Actual Procedures p L4-5, L5-S1 TLIF with posterior instrumentation-Robot - Yared Agosto MD Physical Therapy Treatment Note M2 PT-IP Current Condition Start: 12/17/23 07:50 Freq: NEEDED Status: Active Protocol: Document 12/17/23 10:00 MB (Rec: 12/17/23 10:49 MB [id number]) Physical Therapy Current Condition Current Condition Evaluation Date 12/17/23 Treatment Diagnosis Lumbar fusion M3 PT-IP Subjective Start: 12/17/23 07:50 Freq: NEEDED Status: Active Protocol: Document 12/17/23 15:43 TS (Rec: 12/17/23 15:52 TS [id number]) Subjective Physical Therapy Visit Type Type Treatment Note Visit Start Time 15:22 Visit Stop Time 15:41 Number of COMPOSITE SCIENCE TEACHER Visits 1 Physical Therapy Visit Comments Patient Comments Pt found resting in bed, is agreeable to PT. Therapy Pain Assessment Pain When Pain Assessed At Rest Pain Present Pain Present Pain Reported Location Lower Back Intensity 5 Scale Used Numeric (0 - 10) Description Acute M4 PT-IP Mobility and Gait Start: 12/17/23 07:50 Freq: NEEDED Status: Active Protocol: Document 12/17/23 15:43 TS (Rec: 12/17/23 15:52 TS [id number]) PT-Bed Mobility Assessment Rolling Type of Rolling Log Rolling,Roll to Right Level of Assist Standby Assistance,1 Person Assistance Supine to Sit Supine to Sit Standby Assistance,1 Person Assistance,Bedrails Scooting Scooting to Edge of Bed Standby Assistance PT-Transfer Assessment Sit to and From Stand Sit to and from Stand Standby Assistance Equipment Transfer Assistive Device Gait Belt,Front Wheeled Walker Orthotic/Prosthetic Devices or Brace: No Comments Mobility Comments She recalled 2/3 spinal precautions(no lifting). Logroll to L side SBA with handrails. Supine to sit SBA with BUE support pushing from bed, pt demonstrates good carryover. STS from bed SBA with FWW. She rushed to restroom due to needing to void quickly, therapist cued pt for safety. She ambulated ~ 100'SBA with FWW. She performed steps x3 with B handrails and SBA/CGA. Pt ambulated back to room. Sit to supine SBA. Pt was left in bed, all needs met. Gait Assessment Gait Gait Assistance Required: Standby Assistance Distance (Feet) 100 Able to Maintain Weight Bearing Status Yes During Gait Assistive Devices Assistive Device Gait Belt,Front Wheeled Walker Orthotic/Prosthetic Devices or Brace: No Gait Deviations General Gait Pattern Antalgic,Decreased Stride Length,Decreased Feet Clearance,Wide Based Gait Factors Limiting Gait Function Factors Limiting Gait Function Decreased Activity Tolerance, Pain,Poor Balance,Poor Safety Awareness Comments Gait Comments See mobility comments Stair Climbing Assessment Evaluation Level of Assist On Stairs Standby Assistance,Contact Guard Assistance,1 Person Assistance Devices Stair Climbing Assistive Devices Left Railing,Right Railing Technique/Endurance Stair Climbing Direction Ascend and Descend Stair Climbing Technique Step to Step Number of Steps Climbed 3 Comments Stair Climbing Comments See mobility comments PT-Balance Assessment Sitting Balance and Reactions Static Sitting Balance Ability Normal Dynamic Sitting Balance Ability Good Standing Balance and Reactions Static Standing Balance Ability Good Dynamic Standing Balance Ability Fair Device Used FWW M5 PT-IP Objective Assessments Start: 12/17/23 07:50 Freq: NEEDED Status: Active Protocol: Document 12/17/23 10:00 MB (Rec: 12/17/23 10:49 MB [id number]) Orientation Orientation/Cognition Level of Alertness Alert Orientation Name,Age,Birthday,Month,Date, Year,Day of Week,Place, Situation Language Function Ability No Deficits Noted Safety Awareness Decreased Safety Awareness Memory Description No Deficits Noted Gross Range of Motion Upper Extremity ROM Impairments Defer to OT Lower Extremity ROM Assessment Within Functional Limits Strength Lower Extremity Strength Assessment Within Functional Limits Muscle Tone Muscle Tone WNL Yes M6 PT-IP Treatment Start: 12/17/23 07:50 Freq: NEEDED Status: Active Protocol: Document 12/17/23 15:43 TS (Rec: 12/17/23 15:52 TS [id number]) Physical Therapy Treatment Education Education Provided Precautions,Post-Op Packet, Safety M7 PT-IP Assessment and Plan Start: 12/17/23 07:50 Freq: NEEDED Status: Active Protocol: Document 12/17/23 15:43 TS (Rec: 12/17/23 15:52 TS [id number]) PT Summary Assessment and Plan Potential Rehabilitation Potential Good Summary Impairments Pain,Balance,Bed Mobility, Transfers,Gait,Activity Tolerance Progress Towards Goals Progressing Toward Goals Assessment Summary Gunjan is making good progress with her mobility. She is SBA for all bed mobility and demonstrates good carryover of sequencing. She progressed her gait to ~100'SBA with FWW. She performed stairs SBA/CGA x3 with B handrails. She rushed to the restroom due to needning to void, pt was cued for safety with her mobility. She recalled 2/3 spinal precautions(no lifting). PT is recommending home with assist . Goals Bed Mobility Goal Independent Transfer Goal Independent,Front Wheeled Walker Gait Goal Independent,Front Wheel Walker Gait Distance 100 Days to Meet Goals 3 Frequency of Treatment Frequency Of Treatment Twice a Day Treatment Plan Physical Therapy Treatment Plan Bed Mobility Training,Transfer Training,Gait Training, Therapeutic Exercise,Balance Retraining,Post Op Education, Discharge Planning,Hot or Cold Pack,Neuromuscular Re-ed, Coordination Retraining,Manual Therapy Precautions Lumbar Precautions Log Roll,No Twisting,Limit Bending,Lifting Restriction of 10 lbs,Gait Belt above Incisional Area Weight Bearing Status Weight Bearing Status Weight Bear as Tolerated Recommendations To Nursing Amount of Assist Needed Standby Assistance Discharge Recommendations PT Discharge Recommendations Home with Assistance, Outpatient PT Transportation Needs at Discharge Private Vehicle
[2023-12-17] MEDS: allopurinoL 100 MG TABLET 200 MG PO (16:14)
[2023-12-17 16:20] VITALS: BP 173/72; PULSE 91
[2023-12-17] MEDS: LOSARTAN 50 MG TABLET PO (16:20)
[2023-12-17 19:37] VITALS: BP 113/54; PULSE 87; RESP 18; TEMP 36.9; O2SAT 97
[2023-12-17] MEDS: SENNOSIDES 8.6 MG TABLET 17.2 MG PO (20:57)
[2023-12-18] MEDS: OXYCODONE IR 10 MG TABLET PO ×3 (00:07→09:02)
[2023-12-18] MEDS: ACETAMINOPHEN 325 MG TABLET 650 MG PO ×2 (00:07→05:05)
[2023-12-18] MEDS: PANTOPRAZOLE DR 20 MG TABLET PO (06:00)
--- NOTE | 2023-12-18 07:24 | PM.DS.1 ---
History of Present Illness History of Present Illness Date Patient Seen: 12/18/23 Time Patient Seen: 07:25 Chief complaint: INPT Narrative: Operative Date/Time/Diagnoses Date of procedure: 12/16/23 Time of procedure: 07:41 Pre-op diagnosis: 1. L4-5, L5-S1 spondylolisthesis 2. L4-5, L5-S1 foramen stenosis with radiculopathy Post-op diagnosis: same Procedure & Clinicians Procedure: 1. L4-5, L5-S1 Postero-lateral and posterior interbody fusion 2. L4-5, L5-S1 interbody cage placement. 3. L4-5, L5-S1 decompressive laminectomy with bilateral facetecomies 4. L4-5, L5-S1 Posterior segmental instrumentation 5. [place] of bone marrow from iliac crest 6. Utilization of microsurgical technique and operating microscope 7. Utilization of robotic assisted navigation Same procedure as scheduled: Yes Indications: Patient has been having chronic back pain and worsening lumbar radiculopathy. Patient was found to have L4-5 L5-S1 spondylolisthesis with foraminal stenosis correlating with patient's symptoms. Patient failed multiple conservative management with worsening pain weakness and numbness in her lower extremity. Patient has been having difficulty performing activity of daily living. After discussing risks benefits of treatment options, patient elected proceed with surgery. Surgeon: Yared Agosto Appraisal Manager: Sherin Garza Click Yes if Unassisted: No Anesthesia Type: General Operative Notes Closure Type: primary Specimen(s): none sent Prosthetic devices, grafts, tissues, transplants, or devices: Globus CREO MIS screws, Rise cages Applied: catheter Estimated Blood Loss (mL): 100 Blood products transfused: none Discharge Providers Provider Date of admission: 12/16/23 06:01 Discharge Date: 12/18/23 Primary care physician: STEPHY Joseph Consults: 12/16/23 12:44 Consult to Occupational Therapy Evaluate & Treat Comment: Physician Instructions: Evaluate and treat Consult to Physical Therapy Evaluate & Treat Comment: Physician Instructions: Evaluate and Treat Discharge provider: Claudia Solitario PA-C Summary Hospital Course Discharge Diagnosis: L4-5, L5-S1 spondylolisthesis, L4-5, L5-S1 foramen stenosis with radiculopathy; s/p L4-5, L5-S1 lumbar fusion Hospital Course: Ms Roel Rocha's hospital course was unremarkable. On the morning of POD# 2, she was feeling well and wanted to go home. She was eating and voiding without difficulty and her pain was well-controlled with oral medication. Her LFTs were checked on morning of surgery, AST and ALT were mildly elevated. She can safely take APAP 325mg q 4-6hrs for the next 2-3 weeks. She was evaluated by PT throughout her stay and they felt she was appropriate for d/c home with family. Exam Vital Signs (past 8 hours): Oxygen Delivery Method Room Air Oxygen Flow Rate 0 Narrative Exam Narrative: 5/5 strength in hip flexors, quadriceps, hamstrings, DF, PF, EHL bilaterally. Sensation to light touch intact throughout BLE, calves soft and compressible. Dressing placed intraoperatively was CDI. Objective Labs 12/17/23 04:37 [facility]LY [facility], [facility] Medical History (Updated 12/10/23 @ 10:20 by Alison Grimm RN) History of COVID-19 (~11/2022) BCC (basal cell carcinoma) Cervical cancer Pre-diabetes Fatty liver HLD (hyperlipidemia) Lung cancer (2020) GERD (gastroesophageal reflux disease) Gout HTN (hypertension) Arthritis COPD (chronic obstructive pulmonary disease) Surgical History (Updated 12/18/23 @ 07:27 by Claudia Solitario PA-C) History of bunionectomy of right great toe Hx of partial nephrectomy (~1969) History of lobectomy of lung (2020) History of hysterectomy Hx of appendectomy Hx of tonsillectomy Social History household members: spouse Smoking Status: Former smoker alcohol intake: current Discharge Assessment & Plan Assessment and Plan Assessment: L4-5, L5-S1 spondylolisthesis, L4-5, L5-S1 foramen stenosis with radiculopathy; s/p L4-5, L5-S1 lumbar fusion Plan of Treatment: D/c home, multimodal pain control, f/u in office in 2 weeks as scheduled. Discharge Plan Discharge Plan Patient Disposition: Home Discharge orders & Medications Prescriptions: New polyethylene glycol 3350 17 gram Powder In Packet 17 g PO DAILY PRN (Reason: Constipation) Qty: 100 1RF oxycodone 5 mg Tablet 5 mg PO Q4-6H PRN (Reason: Pain, Moderate (4-6)) Qty: 40 0RF ondansetron 4 mg Tablet,Disintegrating 4 mg sublingual Q6HR Qty: 30 0RF Continued allopurinol 100 MG tablet 200 mg PO QPM Qty: 0 losartan 50 mg Tablet 50 mg PO QPM omeprazole 20 mg Tablet,Delayed Release (Dr/Ec) 20 mg PO DAILY Discontinued meloxicam 7.5 mg Tablet 7.5 mg PO DAILY PRN (Reason: Pain) Follow up/Referrals: Millicent Stafford ARNP [Primary Care Provider] - Yared Agosto MD [Physician] - 12/31/23 1:30 pm (Follow up with Claudia Solitario PA-C, at [facility] in [place].) Diet/Activity/Treatments Diet: Diet as Tolerated Activity: No deep bending or twisting at the waist. No lifting more than 10 pounds. Cold/Heat Therapy: Heating pad to low back as needed for pain. Skin/Wound/Dressing Care Report to your healthcare provider any signs of infection, such as:: chills, fever, night sweats, unusual drainage and unusual redness Dressing: May shower. Keep dressing as dry as possible. If dressing becomes wet or dirty, may remove and replace with clean, dry gauze. No bathing or otherwise soaking incisions. Do not apply any creams, lotions, or ointments to incisions. Visit Report/Discharge Packet Instructions: DI for Prescription Opioid Use, DI for Transforaminal Lumbar Interbody Fusion Stand Alone Forms: Patient Portal/API, Stroke Signs & Symptoms, Surgery Discharge Discharge Data Primary Care Provider: Millicent Stafford Quality VTE Deep Vein Thrombosis/Pulmonary Embolism Present on Admission: No
[2023-12-18 08:00] VITALS: BP 152/67; PULSE 87; RESP 12; TEMP 37; O2SAT 96
[2023-12-18] MEDS: SODIUM CHLORIDE 0.9% FLUSH 10 ML IV (09:02)
[2023-12-18] MEDS: DOCUSATE 100 MG CAPSULE PO (09:02)
--- NOTE | 2023-12-18 10:04 | PT-IP ANOTE ---
Pt refused to work with PT this morning, she is discharging and has no needs.
[2023-12-18] MEDS: ONDANSETRON 4 MG ODT SL (10:19)
--- NOTE | 2023-12-18 10:45 | PC.NURSE ---
Pt discharged home at 0925, escorted off floor in wheelchair accompanied by hospital staff and spouse. IV removed, discharge teaching completed including new medications, follow up appointments and wound care. Questions answered and concerns addressed. Patient left the floor with all belongings.
== END 2023-12-18 10:48 | disposition home or self-care (01) | DRG 455 ==
PROVIDERS: Physician Assistant; Admitting Provider Orthopaedic Surgery Orthopaedic Surgery of the Spine; PCP Nurse Practitioner Family; Referring Provider Orthopaedic Surgery Orthopaedic Surgery of the Spine; Visit Provider Orthopaedic Surgery Orthopaedic Surgery of the Spine
PROC: 0SG00AJ Fusion of Lumbar Vertebral Joint with Interbody Fusion Device, Posterior Approach, Anterior Column, Open Approach (ICD-10-PCS; principal; 2023-12-16 07:45)
DX: M43.16 Spondylolisthesis, lumbar region (principal); M48.061 Spinal stenosis, lumbar region without neurogenic claudication; M43.17 Spondylolisthesis, lumbosacral region; M48.07 Spinal stenosis, lumbosacral region; M54.16 Radiculopathy, lumbar region; M54.17 Radiculopathy, lumbosacral region; M10.9 Gout, unspecified; K21.9 Gastro-esophageal reflux disease without esophagitis; I10 Essential (primary) hypertension; Z87.891 Personal history of nicotine dependence
CPT/HCPCS: 36415; 72100; 76000; 80076; 85014; 85018; 97161; 97165; 97530; 97535; C1713; C9290; J0171; J0330; J0690; J1100; J1170; J2405; J2704; J3010; J3410